=== PATIENT | male | born 1980 | race Caucasian/White ===

== ENCOUNTER 2018-11-10 10:23 | Day surgery (SDC) | payer OTHER ==
[2018-11-03 10:52] VITALS: BMI 25.9
[~2018-11-10 10:23] MED LIST: LACTATED RINGERS SOLUTION 1,000 ML IV SCH; ONDANSETRON 4 MG/2 ML VIAL IVPUSH PRN; oxyCODONE HCL 5 MG TABLET PO PRN
[2018-11-10] MEDS ORDERED: BUPIVACAINE HCL/EPINEPHRINE/PF 30 ML VIAL IJ ONE (12:08)
--- NOTE | 2018-11-10 12:15 | HP ---
[facility]ellite [facility] - Chief Complaint Chief Complaint: Scalp mass and back mass History Source: Patient Limitations to Obtaining History: No Limitations - Past Medical History Allergies/Adverse Reactions: Allergies Allergy/AdvReac Type Severity Reaction Status Date / Time No Known Allergies Allergy Verified 11/03/18 10:52 - Current Medications Current Medications: Home Medications Medication Instructions Recorded NK [No Known Home Medication] 11/03/18 [facility] Physical Exam - Physical Examination Vital Signs: Vital Signs Period Temp Pulse Resp BP Sys/Langston Pulse Ox Last 24 Hr 98.4 F 82 18 148/88 99 General Appearance: Well Nourished, Other (Scalp mass 5cm x 5cm Back mass 4cm x 3cm No erythema, no discharge Scalp mass mobile and soft Back mass exophytic, mobile) Lung: Clear to auscultation Heart: Regular rate & rhythm Abdomen: Soft Neurological: Alert, Oriented Satellite Impression/Plan - Impression/Plan Impression: Scalp mass and back mass Operative Procedure: Excision of scalp mass and back mass Date to be Performed: 11/10/18
--- NOTE | 2018-11-10 13:50 | OP ---
Operative Note - Note: Operative Date: 11/10/18 Pre-Operative Diagnosis: Back mass. Scalp mass Operation: Excision of back mass. excision of scalp mass Findings: Back mass 4cm x 3cm Scalp mass 5cm x 5cm Post-Operative Diagnosis: Same as Pre-op Surgeon: Miles Morrell Mixing Tumbler Operator: Cheko Goodman Anesthesia: Local Specimens Removed: Back mass. Scalp mass Estimated Blood Loss (mls): 10 Operative Report Dictated: Yes
[2018-11-10 14:41] VITALS: BP 126/78; PULSE 74; TEMP 98.2
--- NOTE | 2018-11-10 15:55 | OP ---
DATE OF OPERATION: 11/10/2018 SURGEON: Miles Morrell MD ASSOCIATE DIRECTOR REGULATORY AFFAIRS: Cheko Goodman MD PREOPERATIVE DIAGNOSES: 1. Back mass. 2. Scalp mass. POSTOPERATIVE DIAGNOSES: 1. Back mass, 4 cm x 3 cm in size. 2. Scalp mass, 5 cm x 5 cm in size. SPECIMEN: As listed above. PLACE OF SURGERY: [facility], [address] [place] [address] PROCEDURE: Excision of back mass and excision of scalp mass. ESTIMATED BLOOD LOSS: 5 mL. DRAINS: None. ANESTHESIA: Local. REASON FOR PROCEDURE: This is a 38-year-old male who presents for evaluation of a midline back mass, which is exophytic, and has increased in size over time, nontender. In addition, he has a scalp mass which is also large and increasing in size, approximately 5 cm x 5 cm in size. He wants both excised. The risks and benefits of the procedure were explained. These included bleeding, infection, injury to surrounding structures including vessel injury, nerve injury, and muscle injury, bone injury, scalp injury, skull injury, wound infection, delayed wound healing, seroma, hematoma, DE, DVT, PE, as some of the complications. He understood and signed informed consent. DESCRIPTION OF PROCEDURE: The patient was placed in the prone position. Both areas were prepped and draped in the usual sterile fashion. Timeout was performed. Marcaine with epinephrine was injected starting at the midline back mass site. An elliptical incision was made around the back mass. Skin and subcutaneous tissue were dissected down to, around, and below the mass, excising the entire specimen. The specimen was then sent off the field. Hemostasis was obtained using electrocautery. Irrigation was used to wash out the wound. A 3-0 Vicryl suture was used to close the deep subcutaneous tissue and a 3-0 silk suture was used in horizontal fashion to close the skin because of tension. This was done in multilayer skin closure. Sterile dressings were applied. The scalp mass was then approached, and again Marcaine with epinephrine injected. A skin incision was made transversely as well, and skin and subcutaneous tissue dissected around the mass. The mass was noted to be quite large in size, was excised down to the level of the skull. This was excised circumferentially until the entire mass was excised and sent off the field. Hemostasis was then obtained and copious irrigation and suction was performed until clear with Betadine-mix solution. Hemostasis was obtained using electrocautery. The deep subcutaneous tissue was then closed with 3-0 Vicryl and skin closed with a 4-0 Biosyn. Sterile dressings were applied. The patient tolerated the procedure well, was transferred to recovery room in stable condition. Georgi DANIELLE/[id number]
--- NOTE | 2018-11-12 17:01 | PATH ---
Surgical Pathology Report Patient Name: STEPHANI LEDESMA Med. Rec. #: [id number] /Age/Gender: 1980 (Age: 38) / M Account: [id number] Location: [facility] AMBULATORY Taken: 11/10/2018 Received: 11/10/2018 Reported: 11/12/2018 Physicians: Miles Morrell M.D. Specimen(s) Received A: BACK MASS SUTURE TSANG LONG LATERAL SHORT SUSPENSION B: SCALP MASS Clinical History Back mass, scalp mass Final Diagnosis A. BACK MASS, EXCISION: SEGMENT OF SKIN WITH EPIDERMAL INCLUSION CYST. B. SCALP MASS, EXCISION: MATURE ADIPOSE TISSUE, CONSISTENT WITH LIPOMA. Electronically Signed Fausto Su M.D. Gross Description A. Received in formalin labeled "back mass," is a 2.4 x 1.3 cm holm, elliptical portion of skin excised to a depth of 1.1 cm. There is a long suture marking the lateral edge is a short suture marking the superior tip of the specimen, per the surgeon. The lateral aspect is inked blue and the medial aspect is inked green. The specimen is serially sectioned from superior to inferior. Sectioning reveals an intact cystic stricture containing holm sebaceous material. Road Advisor sections are submitted in one cassette. B. Received in formalin labeled "scalp mass," is a 3.2 x 2.8 x 1.1 cm holm-yellow soft tissue mass. Sectioning reveals homogeneous yellow, lobulated adipose tissue. No areas of hemorrhage or necrosis are identified. Road Advisor sections are submitted in 2 cassettes. /11/11/2018 saudi11/11/2018
== END 2018-11-10 14:44 | disposition home or self-care (01) ==
LOC: FASU 10:23
PROVIDERS: ATTEND Surgery
PROC: 0JQ00ZZ Repair Scalp Subcutaneous Tissue and Fascia, Open Approach (ICD-10-PCS; 2018-11-10)
PROC: 0JB70ZX Excision of Back Subcutaneous Tissue and Fascia, Open Approach, Diagnostic (ICD-10-PCS; 2018-11-10)
PROC: 0JQ70ZZ Repair Back Subcutaneous Tissue and Fascia, Open Approach (ICD-10-PCS; 2018-11-10)
PROC: 0JB00ZX Excision of Scalp Subcutaneous Tissue and Fascia, Open Approach, Diagnostic (ICD-10-PCS; principal; 2018-11-10 12:34)
DX: D17.0 Benign lipomatous neoplasm of skin and subcutaneous tissue of head, face and neck (principal); L72.0 Epidermal cyst
CPT/HCPCS: 88304-TC